=== PATIENT | female | born 1980 | race Caucasian/White ===

== ENCOUNTER 2019-03-11 21:23 | Emergency (ER) | payer OTHER ==
[2019-03-11] MEDS ORDERED: Diph,Pert(Acell),Tet Vac 0.5 ML SYR IM ONE (21:43)
--- NOTE | 2019-03-11 21:46 | Emergency Department Record ---
History of Present Illness - General Chief Complaint: Laceration(s) Stated Complaint: LAC ON R HAND Time Seen by Provider: 03/11/19 21:28 Source: Patient Mode of Arrival: Ambulatory Limitations: No limitations - History of Present Illness Initial Commments: The patient is here due to cutting her R 2nd finger with a razor blade knife 30 minutes ago. Her td is not utd and she denies any numbness, tingling or weakness. Onset/Timin -: Minutes(s) Context: Accidental Associated Symptoms: None Treatments Prior to Arrival: Bandage - [place] Coma Scale Eye Response: (4) Open spontaneously Motor Response: (6) Obeys commands Verbal Response: (5) Oriented Rowdy Total: 15 - Related Data Year of Tetanus Vaccination: unknown Home Medications Medication Instructions Recorded Confirmed Last Taken Hydroxyzine HCl 50 mg PO BID 03/11/19 03/11/19 03/11/19 Previous Rx's Medication Instructions Recorded Cephalexin [Keflex] 500 mg PO TID #15 cap 03/11/19 Allergies Allergy/AdvReac Type Severity Reaction Status Date / Time No Known Drug Allergies Allergy Verified 03/11/19 21:33 Travel Screening - Travel/Exposure Within Last 30 Days Have you traveled within the last 30 days?: No - Travel/Exposure Within Last Year Have you traveled outside the [place] in the last year?: No - Additonal Travel Details Have you been exposed to anyone with a communicable illness?: No - Travel Symptoms Symptom Screening: None Review of Systems Constitutional: Denies: Chills, Fever Past Medical History - SOCIAL HISTORY Smoking Status: Never smoker Alcohol Use: Occasional Drug Use: None - RESPIRATORY Hx Respiratory Disorders: No - CARDIOVASCULAR Hx Cardio Disorders: No - NEURO Hx Neuro Disorders: No - GI Hx GI Disorders: No - Hx Genitourinary Disorders: No - ENDOCRINE Hx Endocrine Disorders: No - MUSCULOSKELETAL Hx Musculoskeletal Disorders: Yes - PSYCH Hx Psych Problems: No Family Medical History Any Significant Family History?: No Hx Heart Disease: Grandparents Physical Exam - General General Appearance: Alert, Cooperative, No acute distress - Head Head exam: Atraumatic - Extremities Extremities exam: negative: Normal inspection (There is a 1 cm lac to the dorsal R 2nd finger between the PIP and MCP joints. The R 2nd finger extension is strong without pain and the sensation distal to the lac is normal.) Course Vital Signs 03/11/19 21:29 Temperature 97.7 F Pulse Rate 90 Respiratory 20 Rate Blood Pressure 115/74 Pulse Ox 98 - Reevaluation(s) Reevaluation #1: Procedure note: The R 2nd finger was anesth. with 1 cc Lido 1%. The wound was cleansed with betadine and sterile saline and closed with 3 4.0 nylon sutures. The lac was superficial and not down to tendon or nerve. There were no complications. 03/11/19 22:02 Disposition Disposition: Discharge Clinical Impression: Finger laceration Qualifiers: Encounter type: initial encounter Finger: index finger Damage to nail status: without damage Foreign body presence: without foreign body Laterality: right Qualified Code(s): S61.210A - Laceration without foreign body of right index finger without damage to nail, initial encounter Disposition: Home, Self-Care Condition: (2) Stable Instructions: Laceration (ED) Additional Instructions: Keep dry for 2 days then no soaking or swimming. Have the sutures removed in 10 days. Take Tylenol or Motrin for pain and take the Keflex as directed. Return to the ER for any worsening symptoms. Prescriptions: Cephalexin [Keflex] 500 mg PO TID #15 cap Forms: Patient Portal Access Time of Disposition: 22:05 Quality - Quality Measures Quality Measures: N/A - Blood Pressure Screening View Details: Yes Does Patient Have Any of the Following: No Blood Pressure Classification: Normal BP Reading Systolic Measurement: 115 Diastolic Measurement: 74 Screening for High Blood Pressure: < Normal BP, F/U Not Required > [[id number]]
== END 2019-03-11 22:12 | disposition home or self-care (01) ==
LOC: ER 21:23
DX: S61.210A Laceration without foreign body of right index finger without damage to nail, initial encounter (principal); W45.8XXA Other foreign body or object entering through skin, initial encounter
CPT/HCPCS: 12001; 90715; 96372; 99283; 99284